=== PATIENT | female | born 1995 | race African-American/Black ===

== ENCOUNTER 2016-11-01 15:42 | Emergency (ER) | payer OTHER ==
[~2016-11-01] VITALS: Ht 162.6 cm; Wt 72.0 kg
[~2016-11-01 15:42] MED LIST: ABILIFY5 MG PO; ALAVERT10 MG PO; AMOXICILLI400 MG/5 M PO; ANTI-FUNGAL12 TOP; BACTRIM DS1 TAB PO; CIPROFLOXACN500 MG PO; DEP0PROVERA IM; DEPAKOTE ER250 MG OR; DEPO-PROVER150 MG/ML IM; DESMOPRESSIN 0.01%; EPIPEN 2-PAK0.3 MG; EPIPEN-JR0.15 MG; FERROUS SU220 MG/5 M OR; FLOVENT HFA220 MCG IN; HYDROCORTISO2.51 EX; KEFLEX500 MG PO; LEXAPRO5 MG/5 ML OR; MINOCYCLINE100 MG OR; MOTRIN800 MG OR; MULTIVITAM10 PO; MUPIROCIN2 % EX; NASONEX50 MCG/AC; PROAIR HFA IN; PROVENTIL0.083 % IN; PROVENTIL90 MCG IN; RETIN-A MICR0.04 % EX; SINGULAIR10 MG OR; TRIAMCINOLON0.5 % EX; ULTRAM50 M1 PO; VIACTIV MULT OR; VIACTIV PO; ZOFRAN ODT4 MG OR; [UNRECOGNIZED DRUG - OTHER] EX; [UNRECOGNIZED DRUG - OTHER] IN
[2016-11-01] MEDS ORDERED: MOTRIN800 MG PO (16:05)
[2016-11-01 16:29] VITALS: BP 121/79
== END 2016-11-01 16:29 | disposition home or self-care (01) | DRG 605 ==
LOC: ED 15:42
DX: S00.83XA Contusion of other part of head, initial encounter (principal); W20.8XXA Other cause of strike by thrown, projected or falling object, initial encounter; Y92.89 Other specified places as the place of occurrence of the external cause; Y99.0 Civilian activity done for income or pay

== ENCOUNTER 2017-03-29 11:52 | Emergency (ER) | payer OTHER ==
[~2017-03-29] VITALS: Ht 162.6 cm; Wt 67.8 kg
[~2017-03-29 11:52] MED LIST changes: +MOTRIN800 MG PO
[2017-03-29 13:16] LABS: INFLUENZA A POSITIVE (NONE DETECT); INFLUENZA B NONE DETECTED (NONE DETECT)
[2017-03-29] MEDS ORDERED: TESSALON PER100 MG PO (13:21)
[2017-03-29] MEDS ORDERED: MOTRIN800 MG PO (13:21)
[2017-03-29] MEDS ORDERED: TAM75CAP PO (13:21)
[2017-03-29 13:35] VITALS: BP 133/97
== END 2017-03-29 13:35 | disposition home or self-care (01) | DRG 153 ==
LOC: ED 11:52
PROVIDERS: Emergency Medicine
DX: J11.1 Influenza due to unidentified influenza virus with other respiratory manifestations (principal)

== ENCOUNTER 2017-11-21 08:21 | Emergency (ER) | payer SELFPAY ==
[~2017-11-21] VITALS: Ht 162.6 cm; Wt 72.0 kg
[~2017-11-21 08:21] MED LIST changes: +TAM75CAP PO; +TESSALON PER100 MG PO
[2017-11-21] MEDS ORDERED: DELTASONE20 MG PO (09:18)
[2017-11-21 09:30] VITALS: BP 129/85
== END 2017-11-21 09:30 | disposition home or self-care (01) | DRG 607 ==
LOC: ED 08:21
DX: L25.9 Unspecified contact dermatitis, unspecified cause (principal); J45.909 Unspecified asthma, uncomplicated

== ENCOUNTER 2018-10-26 23:11 | Emergency (ER) | payer BC ==
[~2018-10-26] VITALS: Ht 162.6 cm; Wt 70.8 kg
[~2018-10-26 23:11] MED LIST changes: +DELTASONE20 MG PO
[2018-10-26] MEDS ORDERED: DEBROX6.5 % AS (23:58)
[2018-10-26] MEDS ORDERED: CORTISPORIN OTI10 M2 AS (23:58)
[2018-10-27 00:05] VITALS: BP 130/91
== END 2018-10-27 00:05 | disposition home or self-care (01) | DRG 156 ==
LOC: ED 23:11
PROC: 3E1B78Z Irrigation of Ear using Irrigating Substance, Via Natural or Artificial Opening (ICD-10-PCS; principal; 2018-10-26)
DX: H61.23 Impacted cerumen, bilateral (principal); H60.92 Unspecified otitis externa, left ear

== ENCOUNTER 2019-03-27 | Emergency (ER) | payer BC ==
[~2019-03-27] MED LIST changes: +CORTISPORIN OTI10 M2 AS; +CYCLOBENZAPR10 MG PO; +DEBROX6.5 % AS; +DICLOFENAC SODI75 MG PO; +ERGOCALCIF50000 UNIT PO; +FLOVENT HF220 MCG/AC; +LORATADINE10 M1 PO; +PROVENTIL HFA IN; +SPRINTEC 2828 DAY PO; +TOBRADEX 2.5 ML OP
[2019-03-27] MEDS ORDERED: NASONEX50 MCG/ACT IN (00:32)
[2019-03-27 00:59] LABS: URINE BILIRUBIN - DIPSTICK NEGATIVE (NEGATIVE); URINE BLOOD DIPSTICK MODERATE (NEGATIVE); URINE COLOR YELLOW; URINE GLUCOSE - DIPSTICK NEGATIVE (NEGATIVE); URINE KETONE NEGATIVE (NEGATIVE); URINE LEUK ESTERASE NEGATIVE (NEGATIVE); URINE NITRITE - DIPSTICK NEGATIVE (Negative); URINE PH 6.5 (4.5-8.0); URINE UROBILINOGEN - DIPSTICK 0.2 E.U./dL (0.2)
[2019-03-27 01:06] LABS: URINE PROTEIN - DIPSTICK NEGATIVE (NEG-TRACE)
[2019-03-27 01:07] LABS: URINE EPITHELIAL CELLS MODERATE EPI/hpf (0-FEW)
[2019-03-27 01:08] LABS: URINE BACTERIA FEW hpf
[2019-03-27] MEDS ORDERED: MACRODANTIN100 MG PO (01:12)
== END 2019-03-27 01:20 | disposition home or self-care (01) | DRG 833 ==
PROVIDERS: Emergency Medicine
DX: O23.40 Unspecified infection of urinary tract in pregnancy, unspecified trimester (principal); Z3A.00 Weeks of gestation of pregnancy not specified

== ENCOUNTER 2019-03-29 | Emergency (ER) | payer BC ==
[~2019-03-29] MED LIST changes: +MACRODANTIN100 MG PO; +NASONEX50 MCG/ACT IN
[2019-03-29 10:21] LABS: ALBUMIN 4.3 g/dL (3.2-5.0); ALKALINE PHOSPHATASE 68 u/l (38-126); AMYLASE 104 u/l (30-110); ANION GAP 14 (6-22 (CALC)); BILIRUBIN, TOTAL 0.4 mg/dL (0.0-1.4); BUN 10 mg/dL (7-17); BUN/CREATININE RATIO 15 (12-20 (CALC)); CARBON DIOXIDE 23 mmol/l (22-30); CHLORIDE 105 mmol/l (95-108); CREATININE 0.6 mg/dL (0.5-1.0); GFR > 60 ML/MIN (>=60 (CALC)); GFR FOR AFR.AMER. > 60 ML/MIN (>=60 (CALC)); LIPASE 103 u/l (23-300); POTASSIUM 4.1 mmol/l (3.5-5.1); SGOT/AST 20 u/l (14-36); SODIUM 137 mmol/l (137-146); TOTAL PROTEIN 7.9 g/dL (6.3-8.2)
[2019-03-29 10:23] LABS: HEMATOCRIT 36.9 % (37.0-47.0); HEMOGLOBIN 12.2 g/dl (12.0-16.0); IMMATURE GRANULOCYTES 0.4 % (0.0-5.0); MEAN CELL VOLUME 84.1 fL CALC (80.0-100.0); MEAN CORPUSCULAR HGB 27.8 pG CALC (26.0-32.0); MEAN CORPUSCULAR HGB CONC 33.1 g/L CALC (32.0-36.0); NEUT# 6.6 thou/uL (2.00-7.15); RED BLOOD COUNT 4.39 mill/uL (4.20-5.60); RED CELL DISTRI WIDTH 12.9 % (11.5-15.5)
[2019-03-29 10:34] LABS: URINE BILIRUBIN - DIPSTICK NEGATIVE (NEGATIVE); URINE BLOOD DIPSTICK MODERATE (NEGATIVE); URINE COLOR YELLOW; URINE GLUCOSE - DIPSTICK NEGATIVE (NEGATIVE); URINE KETONE NEGATIVE (NEGATIVE); URINE LEUK ESTERASE NEGATIVE (NEGATIVE); URINE NITRITE - DIPSTICK NEGATIVE (Negative); URINE PH 6.5 (4.5-8.0); URINE PROTEIN - DIPSTICK NEGATIVE (NEG-TRACE); URINE UROBILINOGEN - DIPSTICK 0.2 E.U./dL (0.2)
[2019-03-29 10:38] LABS: BETA-HCG, QUANT(RESULT NUMBER) 4370 mIU/mL
[2019-03-29 10:57] LABS: URINE EPITHELIAL CELLS FEW EPI/hpf (0-FEW)
== END 2019-03-29 12:16 | disposition home or self-care (01) | DRG 832 ==
PROVIDERS: Emergency Medicine
DX: O20.0 Threatened abortion (principal); O23.41 Unspecified infection of urinary tract in pregnancy, first trimester; Z3A.01 Less than 8 weeks gestation of pregnancy

== ENCOUNTER 2019-04-03 | Emergency (ER) | payer BC ==
[2019-04-04] MEDS ORDERED: BENADRYL 50MG C50 MG PO (00:10)
== END 2019-04-04 00:23 | disposition home or self-care (01) | DRG 607 ==
DX: L27.1 Localized skin eruption due to drugs and medicaments taken internally (principal); T37.8X5A Adverse effect of other specified systemic anti-infectives and antiparasitics, initial encounter; Z33.1 Pregnant state, incidental

== ENCOUNTER 2021-09-30 15:30 | Emergency (ER) | payer MEDICAID ==
[~2021-09-30] VITALS: Ht 162.6 cm; Wt 86.1 kg
[~2021-09-30 15:30] MED LIST changes: +BENADRYL 50MG C50 MG PO
[2021-09-30 16:18] VITALS: BP 146/94
[2021-09-30 17:09] LABS: HEMATOCRIT 41.5 % (37.0-47.0); HEMOGLOBIN 13.4 g/dl (12.0-16.0); IMMATURE GRANULOCYTES 0.1 % (0.0-5.0); MEAN CELL VOLUME 84.3 fL CALC (80.0-100.0); MEAN CORPUSCULAR HGB 27.2 pG CALC (26.0-32.0); MEAN CORPUSCULAR HGB CONC 32.3 g/dL CAL (32.0-36.0); NEUT# 5.13 thou/uL (2.00-7.15); RED BLOOD COUNT 4.92 mill/uL (4.20-5.60); RED CELL DISTRI WIDTH 13.2 % (11.5-15.5)
[2021-09-30 17:10] LABS: URINE BILIRUBIN - DIPSTICK NEGATIVE (NEGATIVE); URINE BLOOD DIPSTICK LARGE (NEGATIVE); URINE CLARITY CLEAR; URINE COLOR YELLOW; URINE GLUCOSE - DIPSTICK NEGATIVE (NEGATIVE); URINE KETONE NEGATIVE (NEGATIVE); URINE LEUK ESTERASE TRACE (Negative); URINE NITRITE - DIPSTICK NEGATIVE (Negative); URINE PROTEIN - DIPSTICK NEGATIVE (NEG-TRACE); URINE UROBILINOGEN - DIPSTICK 0.2 E.U./dL (0.2)
[2021-09-30 17:13] LABS: URINE SQUAMOUS EPITHELIAL CELL FEW EPI/hpf (0-FEW); URINE WBC 0-2 WBC/hpf (0-5)
[2021-09-30 17:30] VITALS: BP 133/92
[2021-09-30 17:36] LABS: ALBUMIN 4.4 g/dL (3.2-5.0); ALKALINE PHOSPHATASE 94 u/l (38-126); ANION GAP 12 (6-22 (CALC)); BILIRUBIN, TOTAL 0.5 mg/dL (0.0-1.4); BUN 8 mg/dL (7-17); BUN/CREATININE RATIO 9 (12-20 (CALC)); CARBON DIOXIDE 25 mmol/l (22-30); CHLORIDE 106 mmol/l (95-108); CREATININE 0.9 mg/dL (0.5-1.0); GFR FOR AFR.AMER. > 60 ML/MIN (>=60 (CALC)); GFR OTHER RACES > 60 ML/MIN (>=60 (CALC)); POTASSIUM 3.9 mmol/l (3.5-5.1); SGOT/AST 19 u/l (14-36); SODIUM 139 mmol/l (137-146)
[2021-09-30 18:00] VITALS: BP 141/97
[2021-09-30] MEDS ORDERED: METHOCARBAMOL500 MG PO (20:04)
[2021-09-30] MEDS ORDERED: NAPROXEN500 MG PO (20:04)
[2021-09-30 20:14] VITALS: BP 141/97
== END 2021-09-30 20:27 | disposition home or self-care (01) ==
LOC: ED 15:30
PROVIDERS: Nurse Practitioner
DX: R10.9 Unspecified abdominal pain (principal); K59.00 Constipation, unspecified; M54.50 Low back pain, unspecified; G89.29 Other chronic pain; J45.909 Unspecified asthma, uncomplicated

== ENCOUNTER 2021-12-22 12:14 | Emergency (ER) | payer MEDICAID ==
[~2021-12-22] VITALS: Ht 162.6 cm; Wt 86.5 kg
[~2021-12-22 12:14] MED LIST changes: +METHOCARBAMOL500 MG PO; +NAPROXEN500 MG PO
[2021-12-22] MEDS ORDERED: ZYRTEC10 MG PO (13:35)
[2021-12-22 13:41] VITALS: BP 143/96
== END 2021-12-22 13:54 | disposition home or self-care (01) ==
LOC: ED 12:14
DX: B34.9 Viral infection, unspecified (principal); J45.909 Unspecified asthma, uncomplicated; Z86.16 Personal history of COVID-19; Z20.822 Contact with and (suspected) exposure to COVID-19

== ENCOUNTER 2022-03-05 19:23 | Emergency (ER) | payer MEDICAID ==
[~2022-03-05] VITALS: Ht 162.6 cm; Wt 84.0 kg
[~2022-03-05 19:23] MED LIST changes: +ZYRTEC10 MG PO
[2022-03-05 19:30] VITALS: BP 153/117
[2022-03-05 20:11] LABS: URINE BILIRUBIN - DIPSTICK NEGATIVE (NEGATIVE); URINE BLOOD DIPSTICK LARGE (NEGATIVE); URINE COLOR YELLOW; URINE GLUCOSE - DIPSTICK NEGATIVE (NEGATIVE); URINE KETONE 15 mg/dL (NEGATIVE); URINE LEUK ESTERASE NEGATIVE (NEGATIVE); URINE NITRITE - DIPSTICK NEGATIVE (Negative); URINE PH 6.5 (4.5-8.0); URINE PROTEIN - DIPSTICK TRACE mg/dL (NEG-TRACE); URINE UROBILINOGEN - DIPSTICK 0.2 E.U./dL (0.2)
[2022-03-05 20:17] LABS: URINE RBC 25-50 RBC/hpf (0-5)
[2022-03-05 20:18] LABS: URINE SQUAMOUS EPITHELIAL CELL FEW EPI/hpf (0-FEW); URINE WBC 0-2 WBC/hpf (0-5)
[2022-03-05] MEDS ORDERED: ZPAK PO (20:41)
[2022-03-05] MEDS ORDERED: MEDDOSEPAK PO (20:41)
[2022-03-05 20:42] VITALS: BP 153/117
== END 2022-03-05 21:00 | disposition home or self-care (01) ==
LOC: ED 19:23
PROVIDERS: Emergency Medicine
DX: J06.9 Acute upper respiratory infection, unspecified (principal); J45.909 Unspecified asthma, uncomplicated; Z20.822 Contact with and (suspected) exposure to COVID-19

== ENCOUNTER 2022-08-22 14:53 | Emergency (ER) | payer MEDICAID ==
[~2022-08-22] VITALS: Ht 162.6 cm; Wt 84.0 kg
[~2022-08-22 14:53] MED LIST changes: +MEDDOSEPAK PO; +ZPAK PO
[2022-08-22 15:00] VITALS: BP 150/95
[2022-08-22] MEDS ORDERED: ALL DAY10 MG PO (15:02)
[2022-08-22] MEDS ORDERED: PREDNISONE50 MG PO ×2 (15:02→18:08)
[2022-08-22 15:24] LABS: URINE BILIRUBIN - DIPSTICK NEGATIVE (NEGATIVE); URINE BLOOD DIPSTICK LARGE (NEGATIVE); URINE COLOR YELLOW; URINE GLUCOSE - DIPSTICK NEGATIVE (NEGATIVE); URINE KETONE NEGATIVE (NEGATIVE); URINE LEUK ESTERASE NEGATIVE (NEGATIVE); URINE PROTEIN - DIPSTICK TRACE mg/dL (NEG-TRACE); URINE SPECIFIC GRAVITY 1.025; URINE UROBILINOGEN - DIPSTICK 0.2 E.U./dL (0.2)
[2022-08-22 15:25] LABS: URINE NITRITE - DIPSTICK NEGATIVE (Negative)
[2022-08-22 15:25] LABS: BASO% 0.4 % (0-3); EOS% 0.9 % (0-8); HEMATOCRIT 37.8 % (37.0-47.0); HEMOGLOBIN 12.2 g/dl (12.0-16.0); IMMATURE GRANULOCYTES 0.2 % (0.0-5.0); LYMPH% 25.7 % (15-41); MEAN CELL VOLUME 84.2 fL CALC (80.0-100.0); MEAN CORPUSCULAR HGB 27.2 pG CALC (26.0-32.0); MEAN CORPUSCULAR HGB CONC 32.3 g/dL CAL (32.0-36.0); MONO% 7.1 % (2-13); NEUT# 8.01 thou/uL (2.00-7.15); NEUT% 65.7 % (42-76); RED BLOOD COUNT 4.49 mill/uL (4.20-5.60); RED CELL DISTRI WIDTH 13.7 % (11.5-15.5)
[2022-08-22 15:31] VITALS: BP 126/85
[2022-08-22 15:33] LABS: URINE SQUAMOUS EPITHELIAL CELL FEW EPI/hpf (0-FEW); URINE WBC 0-2 WBC/hpf (0-5)
[2022-08-22 15:44] LABS: ALBUMIN 4.6 g/dL (3.2-5.0); ALKALINE PHOSPHATASE 77 u/l (38-126); ANION GAP 15 (6-22 (CALC)); BILIRUBIN, TOTAL 0.4 mg/dL (0.02-1.3); BUN 8 mg/dL (7-17); BUN/CREATININE RATIO 10 (12-20 (CALC)); CARBON DIOXIDE 20 mmol/l (22-30); CHLORIDE 107 mmol/l (95-108); CREATININE 0.8 mg/dL (0.5-1.0); GFR FOR AFR.AMER. > 60 ML/MIN (>=60 (CALC)); GFR OTHER RACES > 60 ML/MIN (>=60 (CALC)); POTASSIUM 3.4 mmol/l (3.5-5.1); SGOT/AST 27 u/l (14-36); SODIUM 139 mmol/l (137-146)
[2022-08-22 16:01] VITALS: BP 131/78
[2022-08-22] MEDS ORDERED: OMNI-PAC300 MG PO (18:08)
[2022-08-22 18:25] VITALS: BP 131/78
== END 2022-08-22 18:24 | disposition home or self-care (01) ==
LOC: ED 14:53
PROVIDERS: Family Medicine
DX: R21 Rash and other nonspecific skin eruption (principal); R10.11 Right upper quadrant pain; R31.9 Hematuria, unspecified; J45.909 Unspecified asthma, uncomplicated

== ENCOUNTER 2022-09-18 16:11 | Emergency (ER) | payer MEDICAID ==
[~2022-09-18] VITALS: Ht 162.6 cm; Wt 85.0 kg
[~2022-09-18 16:11] MED LIST changes: +ALL DAY10 MG PO; +OMNI-PAC300 MG PO; +PREDNISONE50 MG PO
[2022-09-18 16:28] VITALS: BP 129/97
[2022-09-18 16:30] VITALS: BP 135/92
[2022-09-18 16:45] VITALS: BP 137/99
[2022-09-18] MEDS ORDERED: AMLODIPINE BES2.5 MG PO (16:48)
[2022-09-18 18:43] VITALS: BP 137/99
== END 2022-09-18 18:51 | disposition home or self-care (01) ==
LOC: ED 16:11
DX: O20.0 Threatened abortion (principal); Z3A.08 8 weeks gestation of pregnancy

== ENCOUNTER 2023-04-17 11:04 | Emergency (ER) | payer MEDICAID ==
[2023-04-17] VITALS (7 sets, daily range): BP systolic 126–156; BP diastolic 91–101
[~2023-04-17] VITALS: Ht 162.6 cm; Wt 86.0 kg
[~2023-04-17 11:04] MED LIST changes: +AMLODIPINE BES2.5 MG PO
[2023-04-17] MEDS ORDERED: TAM75CAP PO (13:10)
== END 2023-04-17 13:25 | disposition home or self-care (01) ==
LOC: ED 11:04
DX: J11.1 Influenza due to unidentified influenza virus with other respiratory manifestations (principal); I10 Essential (primary) hypertension; Z20.822 Contact with and (suspected) exposure to COVID-19

== ENCOUNTER 2023-09-26 18:45 | Emergency (ER) | payer SELFPAY ==
[~2023-09-26] VITALS: Ht 162.6 cm; Wt 84.0 kg
[2023-09-26] MEDS ORDERED: METHOCARBAMOL500 MG PO (20:14)
[2023-09-26 20:52] VITALS: BP 128/84
== END 2023-09-26 20:52 | disposition home or self-care (01) | DRG 552 ==
LOC: ED 18:45
DX: M43.6 Torticollis (principal); I10 Essential (primary) hypertension; J45.909 Unspecified asthma, uncomplicated

== ENCOUNTER 2023-12-22 11:03 | Emergency (ER) | payer SELFPAY ==
[~2023-12-22] VITALS: Ht 162.6 cm; Wt 83.9 kg
[2023-12-22] VITALS (10 sets, daily range): BP systolic 128–158; BP diastolic 88–106
[2023-12-22] MEDS ORDERED: MEDDOSEPAK PO (12:53)
[2023-12-22] MEDS ORDERED: BENZONATATE200 MG PO (12:53)
[2023-12-22] MEDS ORDERED: ZPAK PO (12:53)
== END 2023-12-22 13:06 | disposition home or self-care (01) | DRG 203 ==
LOC: ED 11:03
DX: J20.9 Acute bronchitis, unspecified (principal); J45.909 Unspecified asthma, uncomplicated; I10 Essential (primary) hypertension; Z20.822 Contact with and (suspected) exposure to COVID-19

== ENCOUNTER 2024-03-22 03:25 | Emergency (ER) | payer SELFPAY ==
[~2024-03-22] VITALS: Ht 162.6 cm; Wt 78.0 kg
[~2024-03-22 03:25] MED LIST changes: +BENZONATATE200 MG PO
[2024-03-22 03:35] VITALS: BP 137/93
[2024-03-22] MEDS ORDERED: CLARITIN10 M1 PO (03:51)
[2024-03-22 04:00] VITALS: BP 129/91
[2024-03-22] MEDS ORDERED: KETOROLAC TROMETHAMINE 15 MG/ML SDV IM ONE (04:00)
[2024-03-22] MEDS ORDERED: ACETAMINOPHEN 500 MG TAB PO ONE (04:00)
[2024-03-22 04:30] VITALS: BP 141/101
[2024-03-22] MEDS ORDERED: CELEBREX200 MG PO (04:43)
[2024-03-22 05:09] VITALS: BP 141/101
== END 2024-03-22 05:09 | disposition home or self-care (01) | DRG 866 ==
LOC: ED 03:25
DX: B34.9 Viral infection, unspecified (principal); I10 Essential (primary) hypertension; J45.909 Unspecified asthma, uncomplicated; Z20.822 Contact with and (suspected) exposure to COVID-19
CPT/HCPCS: J1885